=== PATIENT | female | born 1930 | race Hispanic/Latino ===

== ENCOUNTER 2020-05-29 21:07 | Emergency (ER) | payer MEDICARE ==
[2020-05-29] MEDS ORDERED: HYDROCODONE/ACETAMINOPHEN 10/325 MG TAB ONE (21:34)
== END 2020-05-29 22:53 | disposition home or self-care (01) ==
LOC: EDH 21:07
DX: S52.602A Unspecified fracture of lower end of left ulna, initial encounter for closed fracture (principal); I25.10 Atherosclerotic heart disease of native coronary artery without angina pectoris; I10 Essential (primary) hypertension; W01.0XXA Fall on same level from slipping, tripping and stumbling without subsequent striking against object, initial encounter; Y93.89 Activity, other specified; Y92.89 Other specified places as the place of occurrence of the external cause; Y99.8 Other external cause status
CPT/HCPCS: 29125; 73090; 73130